=== PATIENT | female | born 1980 | race Two or more races ===

== ENCOUNTER 2018-08-09 05:56 | Day surgery (SDC) | payer MEDICARE, MEDICAID ==
[2018-08-09] VITALS (9 sets, daily range): BP systolic 107–138; BP diastolic 55–84
[~2018-08-09] VITALS: Ht 170.2 cm; Wt 72.6 kg
[~2018-08-09 05:56] MED LIST: LOSARTAN-HCTZ1 EAC1 ORAL; TRUVADA1 TAB ORAL
[2018-08-09] MEDS ORDERED: TESTOSTERO100 MG/1 M IM (06:26)
[2018-08-09] MEDS ORDERED: ceFAZolin sod 2 GM in NS 55 ML IVPB ONE (07:00)
[2018-08-09] MEDS ORDERED: Midazolam 2mg/2ml Inj ONE (07:07)
[2018-08-09] MEDS ORDERED: fentaNYL 100 mcg/2 mL IV ONE (07:07)
[2018-08-09] MEDS ORDERED: Lidocaine 1% MPF 10mg/ml 5ml ONE (07:09)
[2018-08-09] MEDS ORDERED: Propofol 200mg/20ml IV ONE (07:09)
--- NOTE | 2018-08-09 07:14 | Pre-Procedure Note/Attestation ---
Pre-Procedure Note/Attestation Complete Prior to Procedure Planned Procedure: bilateral Indications for Procedure Pre-Operative Diagnosis: gender identity disorder Attestation I attest that I discussed the nature of the procedure; its benefits; risks and complications; and alternatives (and the risks and benefits of such alternatives ), prior to the procedure, with the patient (or the patient's legal new accounts representative). I attest that, if there was a reasonable possibility of needing a blood transfusion, the patient (or the patient's legal new accounts representative) was given the [facility] standardized written summary, pursuant to the [place] Blood Safety Act ([place] Health and Safety Code # 1645, as amended). I attest that I re-evaluated the patient just prior to the surgery and that there has been no change in the patient's H&P, except as documented below: Martin Maldonado MD Aug 09, 2018 07:14
[2018-08-09] MEDS ORDERED: Bupivacaine 0.25% Inj 30ml INJ ONE (07:15)
[2018-08-09] MEDS ORDERED: Bacitracin Oint 15gm Tube TOPIC ONE (07:15)
[2018-08-09] MEDS ORDERED: Lidocaine 1% 10mg/ml/Epi 0.005mg/ml 30ml vial INJ ONE (07:15)
[2018-08-09] MEDS ORDERED: Dyna-Hex 2% Top Sol 2oz TOPIC ONE (07:16)
[2018-08-09] MEDS ORDERED: Muri-Lube ONE (07:17)
[2018-08-09] MEDS ORDERED: Zemuron 50mg/5ml Inj IV ONE (07:19)
[2018-08-09] MEDS ORDERED: TransDerm Scop 1mg/72HR Patch TDERMAL ONE ×2 (07:19→08:30)
[2018-08-09] MEDS ORDERED: Succinylcholine 20mg/ml 10ml vial ONE (07:19)
[2018-08-09] MEDS ORDERED: Sterile Water Irrig 1000ml IRRIG ONE (07:30)
[2018-08-09] MEDS ORDERED: LR 1000ml ONE (07:30)
[2018-08-09] MEDS ORDERED: NS Irrig 1000ml ONE (07:30)
[2018-08-09] MEDS ORDERED: NS Irrig 1000ml IRRIG ONE (07:32)
[2018-08-09] MEDS ORDERED: Muri-Lube ORAL ONE (07:32)
[2018-08-09] MEDS ORDERED: Morphine Sulfate 10mg/ml Inj ONE (08:06)
[2018-08-09] MEDS ORDERED: Sodium Chloride 10ml vial INJ ONE ×2 (08:07→08:42)
--- NOTE | 2018-08-09 08:26 | Anethesia Preoperative Eval ---
Anesthesia Pre-op PMH/ROS General Date of Evaluation: Aug 09, 2018 Time of Evaluation: 07:20 Anesthesiologist: Dwayne ASA Score: ASA 2 Mallampati Score Class I : Soft palate, uvula, fauces, pillars visible Class II: Soft palate, uvula, fauces visible Class III: Soft palate, base of uvula visible Class IV: Only hard plate visible Mallampati Classification: Class II Surgeon: Erica Diagnosis: Gender dysphoria Surgical Procedure: Bilateral mastectomy Anesthesia History: none Family History: no anesthesia problems Allergies: Coded Allergies: OXYCODONE (Verified Allergy, Intermediate, 08/09/18) itching Medications: see eMAR Patient NPO?: Yes Past Medical History Cardiovascular: Reports: HTN; Denies: CAD, [place], valve dz, arrhythmia, other Pulmonary: Denies: asthma, COPD, JALIL, other Gastrointestinal/Genitourinary: Reports: GERD; Denies: CRI, ESRD, other Neurologic/Psychiatric: Reports: depression/anxiety; Denies: dementia, CVA, TIA, other Endocrine: Denies: DM, hypothyroidism, steroids, other HEENT: Denies: cataract (L), cataract (R), glaucoma, [place] (L), [place] (R), other Hematology/Immune: Denies: anemia, DVT, bleeding disorder, other Musculoskeletal/Integumentary: Denies: OA, RA, DJD, DDD, edema, other PMH Narrative: as above Anesthesia Pre-op Phys. Exam Physician Exam Last Vital Signs Date Time Temp Pulse Resp B/P (MAP) Pulse Ox O2 Delivery O2 Flow Rate FiO2 08/09/18 06:38 Room Air 08/09/18 06:30 97.8 74 18 123/78 97 Constitutional: NAD Neurologic: CN 2-12 intact Cardiovascular: RRR, no M/R/G Respiratory: CTA Gastrointestinal: S/NT/ND Airway Exam Mallampati Score: Class II MO: full Neck: stiff ROM: limited Teeth: missing Dentures: no upper, no lower Anesthesia Pre-op A/P Labs see chart Urine Test Test 08/09/18 06:15 Urine HCG, Qualitative Negative (NEGATIVE) Studies Pre-op Studies: EKG - SR Risk Assessment & Plan Assessment: ASA 2 Plan: GA with ETT PONV prevention Status Change Before Surgery: No Pre-Antibiotics Drug: Ancef 1gr. Given Within 1 Hr of Incision: Yes Time Given: 08:04 Ricky Rice MD Aug 09, 2018 08:26
[2018-08-09] MEDS ORDERED: Acetaminophen (Non formulary) 100 ML IV ONE (08:30)
[2018-08-09] MEDS ORDERED: Glycopyrrolate 0.2mg/ml 1ml Vial ONE (08:47)
[2018-08-09] MEDS ORDERED: Ketorolac 30mg Inj ONE (08:47)
[2018-08-09] MEDS ORDERED: Hydromorphone 0.5mg/0.5ml inj IVP PRN (09:00)
[2018-08-09] MEDS ORDERED: DiphenhydrAMINE 50mg/ml Inj IVP PRN (09:00)
[2018-08-09] MEDS ORDERED: Ketorolac 30mg Inj IV PRN (09:00)
[2018-08-09] MEDS ORDERED: Midazolam 2mg/2ml Inj IVP PRN (09:00)
[2018-08-09] MEDS ORDERED: Meperidine 50mg/ml Inj(FOR RIGORS ONLY) IV PRN (09:00)
[2018-08-09] MEDS ORDERED: Metoclopramide 10mg/2ml Inj IVP PRN (09:00)
[2018-08-09] MEDS ORDERED: LR 1000ml 1,000 ML IVLG SCH (09:00)
--- NOTE | 2018-08-09 11:21 | Operative Note - PDOC ---
Operative Note Operative Note Date of Operation/Procedure: Aug 09, 2018 Pre-op Diagnosis: gender identity disorder Procedure: bilateral mastectomy, bilateral nipple areola reconstruction Post-op Diagnosis: same as pre-op Surgeon: Erica Anesthesia: general Specimen: yes - 1) right breast, 2) left breast Complications: none Condition: stable Estimated Blood Loss: volume - 50 cc Drains: MARTELL - x2 Implant(s) used?: No Martin Maldonado MD Aug 09, 2018 11:21
--- NOTE | 2018-08-09 11:25 | Discharge Instructions ---
Discharge Instructions Discharge Instructions Follow up with: Dr. Maldonado August 14, 2018 Diet: regular Resume Normal Activity?: Yes Activity: ambulate For Surgical Patients Dressing Care: keep dry and clean May shower: No - sponge bathe only For Congestive Heart Failure Reminder Report to your physician any weight gain of 5 pounds or more in one week. Martin Maldonado MD Aug 09, 2018 11:24
[2018-08-09] MEDS ORDERED: D5 1/2NS 1,000 ML IV SCH (11:30)
[2018-08-09] MEDS ORDERED: traMADol 50mg tab ORAL ONE (11:30)
--- NOTE | 2018-08-09 11:40 | Immediate Post-Op Evaluation ---
Immediate Post-Op Evalulation Immediate Post-Op Evalulation Procedure: Bilateral mastectomy with nipple reconstruction Date of Evaluation: Aug 09, 2018 Time of Evaluation: 11:39 IV Fluids: 1200 Blood Products: none Estimated Blood Loss: 150 Urinary Output: 250 Blood Pressure Systolic: 136 Blood Pressure Diastolic: 72 Pulse Rate: 86 Respiratory Rate: 20 O2 Sat by Pulse Oximetry: 98 Temperature (Fahrenheit): 98.1 Pain Score (1-10): 1 Nausea: No Vomiting: No Complications none Patient Status: awake, patent, extubated, none Hydration Status: adequate Ricky Rice MD Aug 09, 2018 11:40
--- NOTE | 2018-08-09 16:16 | Operative Note - Dictated ---
DATE OF OPERATION: 08/09/2018 PREOPERATIVE DIAGNOSIS: Gender identity disorder. POSTOPERATIVE DIAGNOSIS: Gender identity disorder. PROCEDURE: 1. Bilateral mastectomy. 2. Bilateral nipple-areolar reconstruction with full-thickness grafts (each graft 2.5 x 2.5 cm). SURGEON: Matrin Maldonado M.D. ANESTHESIA: General. ESTIMATED BLOOD LOSS: 50 mL. DRAINS: A 15-Azeri Brenden x2. SPECIMENS: 1. Right breast. 2. Left breast. COMPLICATIONS: None. CONDITION: To recovery room stable. INDICATION FOR PROCEDURE: This is a very pleasant 38-year-old trans male who desires Top surgery mastectomy as a part of his transition. He has the appropriate letter for recommendation from his therapist and meets all WPATH criteria for Top surgery. I have discussed the risks, benefits, and alternatives of the procedure with him including, but not limited to bleeding, infection, scarring, nerve injury, asymmetry, contour deformity, hematoma, seroma, loss of nipple sensation, loss of nipple graft and need for additional surgery including revisions. I discussed the orientation of the incisions and the unpredictable nature of scarring. No guarantees were made regarding the outcome. All of his questions have been answered to the best of my ability. He verbalized understanding with everything that we discussed and wishes to proceed. DESCRIPTION OF PROCEDURE: The patient was identified in the preoperative holding area and marked in the standing position. He was then brought to the operating room where he was placed in the supine position on the operating room table with his arms extended on arm boards. All bony prominences were adequately padded. Sequential compression devices were placed and intravenous antibiotics were administered. After induction of anesthesia, the patient's chest was prepped and draped in sterile fashion. Starting on the right breast first, the nipple-areolar complex was placed on manual stretch and a [place] measuring 2.5 cm in diameter was drawn out centered around the nipple-areolar complex. Next, the subdermal plane within these markings was infiltrated with 3 mL of 1% lidocaine with epinephrine. Next, I used a 15 blade scalpel to incise the areolar marking and proceeded to harvest a full-thickness nipple-areolar graft. The graft was subsequently defatted, wrapped in wet gauze, and placed on the back table. I then made the inframammary fold incision using a 10 blade scalpel. Dissection proceeded down to the level of the pectoralis major fascia. After this was done, I then made the superior breast incision using a 10 blade scalpel and dissected down to the level of Rosaura's fascia. Allis clamps were used to retract the skin and a plane of dissection was created between the subcutaneous tissues and breast parenchyma heading in a superior direction towards the level of the clavicle. Afterwards, the breast parenchyma was then elevated off of the pectoralis major fascia proceeding from a medial to a lateral direction. The specimen was passed off the table. Hemostasis was achieved and the wound was irrigated with saline. A 15-Azeri Brenden drain was placed within the wound and brought out through a separate stab incision and secured using 2-0 silk suture. Next, skin tenisha were used to temporarily reapproximate the skin. I then shifted my attention to the contralateral side where the identical procedure was performed. Afterwards, the patient was then sat up on the operating room table and it appeared that he had very reasonable symmetry between the 2 sides of his chest. I then used a marking pen to draw the proposed location of the new nipple-areolar complex on each side of the chest. These markings were confirmed with direct measurements. He was then placed back in the supine position. The skin tenisha were removed. On each side of the chest, the Rosaura's fascia layer was reapproximated with interrupted 0 Vicryl suture. The subdermal layer closed with interrupted 3-0 PDS suture and the skin closed using a subcuticular running 3-0 Monocryl suture. Next, each of the incisions was infiltrated with 8 mL of 0.25% plain Marcaine. I then proceeded with the nipple-areolar reconstruction portion of the procedure by starting on the right breast first and then followed by the left breast, incising the neoareolar marking using a 15 blade scalpel. The intervening skin within the markings was de-epithelialized. Each of the full-thickness nipple-areolar grafts was then brought out onto the appropriate side of the chest and inset using a running 5-0 fast-absorbing suture to complete the nipple-areolar reconstruction. Next, several 2-0 silk sutures were placed around the periphery of each wound. The skin graft bolster was fashioned and secured into place over each nipple-areolar graft using the 2-0 silk suture ties. Sterile dressings were then applied. The patient tolerated the procedure well and was sent to the recovery room in stable condition. All instrument, sharp, and sponge counts were correct at the conclusion of the procedure. Martin Maldonado M.D. DR: VIJAY JOB#: [id number] CC:
== END 2018-08-09 13:50 | disposition home or self-care (01) ==
LOC: SUR 05:56
DX: F64.9 Gender identity disorder, unspecified (principal); K21.9 Gastro-esophageal reflux disease without esophagitis; F32.9 Major depressive disorder, single episode, unspecified; F41.9 Anxiety disorder, unspecified
CPT/HCPCS: 19303; 19350; 81025; J0330; J0360; J0690; J1885; J2175; J2250; J2270; J2405; J2704; J3010; J3490; 94003; 94150